=== PATIENT | female | born 1990 | race Caucasian/White ===

== ENCOUNTER 2017-03-07 13:28 | Emergency (ER) | payer OTHER ==
[2017-03-07 13:34] VITALS: BP 123/76; PULSE 67; RESP 20; TEMP 98.6
--- NOTE | 2017-03-07 13:42 | ED ---
General Adult HPI - General Chief complaint: Extremity Injury, Lower Stated complaint: Right Knee Pain Time Seen by Provider: 03/07/17 13:35 Source: patient, RN notes reviewed Mode of arrival: ambulatory Limitations: no limitations - History of Present Illness Initial comments: 27 yo female presents to the ER with cc of right knee pain. 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 Patient states that this is causing her incredible pain she has some numbness and tingling to the right side of the knee. Patient states she able to walk she is able to move it she can bend squats that if she puts direct pressure on the front of her knee she does have discomfort. Patient has a swelling. Patient denies any history of knee problems in the past. Patient states that she is not currently having any other symptoms. Patient denies any recent fever, chills, shortness of breath, chest pain, back pain, abdominal pain , nausea vomiting, numbness or tingling, dysuria or hematuria, constipation or diarrhea, headaches or visual changes, or any other current symptoms. - Related Data Home Medications Medication Instructions Recorded Confirmed No Known Home Medications [No 03/07/17 03/07/17 Known Home Medications] Allergies Allergy/AdvReac Type Severity Reaction Status Date / Time No Known Allergies Allergy Verified 03/07/17 13:34 Review of Systems ROS Statement: Those systems with pertinent positive or pertinent negative responses have been documented in the HPI. ROS Other: All systems not noted in ROS Statement are negative. Past Medical History Past Medical History: No Reported History History of Any Multi-Drug Resistant Organisms: None Reported Past Surgical History: Cholecystectomy, Orthopedic Surgery Additional Past Surgical History / Comment(s): LT WRIST BROKEN HAD SX TO REPAIR AND PT STATED "SHE THINKS. THEY REMOVED THE PINS THAT WERE IN PLACE" Past Anesthesia/Blood Transfusion Reactions: No Reported Reaction Past Psychological History: ADD/ADHD Smoking Status: Never smoker Past Alcohol Use History: Occasional Past Drug Use History: None Reported - Past Family History Mother History Unknown: Yes Father Additional Family Medical History / Comment(s): BACK PROBLEMS General Exam - General Exam Comments Initial Comments: General: The patient is awake and alert, in no distress, and does not appear acutely ill. Neck: The neck is supple, there is no tenderness. Cardiovascular: There is a regular rate and rhythm. No murmur, rub or gallop is appreciated. Respiratory: Lungs are clear to auscultation, respirations are non-labored, breath sounds are equal. No wheezes, stridor, rales, or rhonchi. Musculoskeletal: Sensation intact with 2+ pulses. Right lower extremity. Find motion of the right ankle and right knee and right hip. Patient does appear to have some tenderness along the anterior aspect of the right knee no swelling or deformity noted. 5 out of 5 muscle strength testing. Neurological: CN II-XII intact, There are no obvious motor or sensory deficits. Coordination appears grossly intact. Speech is normal. Skin: Skin is warm and dry and no rashes or lesions are noted. Psychiatric: Normal mood and affect. Limitations: no limitations Course Vital Signs 03/07/17 13:32 Temperature 98.6 F Pulse Rate 67 Respiratory 20 Rate Blood Pressure 123/76 O2 Sat by Pulse 99 Oximetry Medical Decision Making - Medical Decision Making 27-year-old female presents emergency per chief complaint of right knee pain. This time x-rays reviewed and negative. We discussed patient most has a right knee contusion. We discussed ice Motrin Tylenol. We discussed return parameters and follow-up all questions. Patient stated that she understood and she is. This plan. She will be discharged home. - Radiology Data Radiology results: report reviewed, image reviewed Disposition Clinical Impression: Contusion of right knee, Osteoarthritis Disposition: HOME SELF-CARE Condition: Stable Instructions: Knee Pain (ED) Additional Instructions: Please use medication as discussed. Please follow up with family doctor if symptoms have not improved over the next two days. Please return to the emergency room if your symptoms increase or worsen or for any other concerns. Referrals: Marcia Damian MD [STAFF PHYSICIAN] - 1-2 days Time of Disposition: 14:05
--- NOTE | 2017-03-07 13:56 | XR ---
Right knee HISTORY: Right knee pain 3 views of the right knee No comparisons There is marginal spurring in the medial compartment some mild joint space loss. Alignment and bone m ineralization are maintained. No evident effusion. IMPRESSION: Osteoarthritis.
== END 2017-03-07 14:08 | disposition home or self-care (01) ==
LOC: EC 13:28
DX: S80.01XA Contusion of right knee, initial encounter (principal); M17.11 Unilateral primary osteoarthritis, right knee; X58.XXXA Exposure to other specified factors, initial encounter; Y93.89 Activity, other specified
CPT/HCPCS: 99283

== ENCOUNTER 2017-10-20 20:08 | Emergency (ER) | payer SELFPAY ==
[2017-10-20] MEDS ORDERED: SODIUM CHLORIDE 0.9% 1,000 ML IV STA ×2 (20:58)
[2017-10-20] MEDS ORDERED: KETOROLAC 30 MG/ML 1 ML VIAL IVP STA (20:59)
--- NOTE | 2017-10-20 21:23 | ED ---
Chest Pain HPI - General Chief Complaint: Chest Pain Stated Complaint: Chest pain Time Seen by Provider: 10/20/17 20:51 Source: patient, RN notes reviewed, old records reviewed Mode of arrival: ambulatory Limitations: no limitations - History of Present Illness Initial Comments: This patient is 27-year-old presents emergency Department chief complaint of right rib pain for the past week. Patient reports that she's been having the symptoms worse with movement and range of motion. Patient states that she has had no fever or chills. Denies cough chest pain shortness of breath. She states that she's had her gallbladder removed. No nausea or vomiting.Patient denies any recent fever, chills, shortness of breath, back pain, abdominal pain , nausea vomiting, numbness or tingling, dysuria or hematuria, constipation or diarrhea, headaches or visual changes, or any other current symptoms - Related Data Previous Rx's Medication Instructions Recorded Naproxen 500 mg PO BID #20 tablet 10/20/17 traMADol HCl [Ultram] 50 mg PO Q4H PRN #20 tab 10/20/17 Allergies Allergy/AdvReac Type Severity Reaction Status Date / Time No Known Allergies Allergy Verified 10/20/17 20:21 Review of Systems ROS Statement: Those systems with pertinent positive or pertinent negative responses have been documented in the HPI. ROS Other: All systems not noted in ROS Statement are negative. EKG Findings - EKG Comments: EKG Findings:: EKG shows normal sinus rhythm, incomplete right bundle branch block. Borderline EKG. Ventricular rate of 65 bpm. IA interval 144 ms. QRS duration 96 ms. QT QTc is 4/424 ms. Past Medical History Past Medical History: No Reported History History of Any Multi-Drug Resistant Organisms: None Reported Past Surgical History: Cholecystectomy, Orthopedic Surgery Additional Past Surgical History / Comment(s): LT WRIST BROKEN HAD SX TO REPAIR AND PT STATED "SHE THINKS. THEY REMOVED THE PINS THAT WERE IN PLACE" Past Anesthesia/Blood Transfusion Reactions: No Reported Reaction Past Psychological History: ADD/ADHD Smoking Status: Never smoker Past Alcohol Use History: Occasional Past Drug Use History: None Reported - Past Family History Mother History Unknown: Yes Father Additional Family Medical History / Comment(s): BACK PROBLEMS General Exam - General Exam Comments Initial Comments: Well-appearing 27-year-old female. No distress. Limitations: no limitations General appearance: alert, in no apparent distress Head exam: Present: atraumatic, normocephalic, normal inspection Eye exam: Present: normal appearance, PERRL, EOMI. Absent: scleral icterus, conjunctival injection, periorbital swelling ENT exam: Present: normal exam, mucous membranes moist Neck exam: Present: normal inspection. Absent: tenderness, meningismus, lymphadenopathy Respiratory exam: Present: normal lung sounds bilaterally, other (Patient sent to palpation over the right ribs.). Absent: respiratory distress, wheezes, rales, rhonchi, stridor Cardiovascular Exam: Present: regular rate, normal rhythm, normal heart sounds. Absent: systolic murmur, diastolic murmur, rubs, gallop, clicks GI/Abdominal exam: Present: soft, normal bowel sounds. Absent: distended, tenderness, guarding, rebound, rigid Extremities exam: Present: normal inspection, full ROM, normal capillary refill. Absent: tenderness, pedal edema, joint swelling, calf tenderness Back exam: Present: normal inspection Neurological exam: Present: alert, oriented X3, CN II-XII intact Psychiatric exam: Present: normal affect, normal mood Skin exam: Present: warm, dry, intact, normal color. Absent: rash Course Vital Signs 10/20/17 10/20/17 20:20 21:52 Temperature 98.3 F Pulse Rate 66 69 Respiratory 22 16 Rate Blood Pressure 140/63 O2 Sat by Pulse 98 98 Oximetry Chest Pain MDM - MDM This patient is 27-year-old female since prescribed to him when one week of right-sided rib pain. Worse with movement. She is tender to palpation over the wrist. Denies any specific strenuous activity that causes. Patient's EKG was reviewed and normal. Lab work was reviewed and normal. Negative d-dimer. Negative troponin. Chest x-ray shows no acute abnormalities. Patient again is very tender to light palpation with range of motion of the muscles. We'll discharge her with anti-inflammatory medicine and advised to follow-up with PCP. QUESTIONS WERE ANSWERED AND RETURN PARAMETERS WERE DISCUSSED. Disposition Clinical Impression: Rib pain on right side Disposition: HOME SELF-CARE Condition: Good Instructions: Costochondritis (ED) Additional Instructions: Patient is to rest, ice, and apply warm compresses on the area of pain. Follow up with PCP and take pain medication. Prescriptions: Naproxen 500 mg PO BID #20 tablet traMADol HCl [Ultram] 50 mg PO Q4H PRN #20 tab PRN Reason: Pain Referrals: None,Stated [Primary Care Provider] - 1-2 days Marcia Damian MD [STAFF PHYSICIAN] - 1-2 days Time of Disposition: 22:45
--- NOTE | 2017-10-20 21:31 | XR ---
EXAMINATION TYPE: XR chest 2V DATE OF EXAM: 10/20/2017 COMPARISON: CT abdomen pelvis one day prior HISTORY: Chest pain TECHNIQUE: Frontal and lateral views of the chest are obtained. FINDINGS: There is no focal air space opacity, pleural effusion, or pneumothorax seen. The cardiac silhouette size is within normal limits. There are overlying cardiac leads. Metallic posterior prese nt to the region of the nipples bilaterally. The osseous structures are intact. IMPRESSION: No acute cardiopulmonary process.
[2017-10-20 21:40] LABS: ALT 27 U/L (9-52); AST 16 U/L (14-36); Alkaline Phosphatase 40 U/L (38-126); Anion Gap 12 mmol/L; Blood Urea Nitrogen 14 mg/dL (7-17); Calcium 9.3 mg/dL (8.4-10.2); Carbon Dioxide 26 mmol/L (22-30); Chloride 106 mmol/L (98-107); Glucose 83 mg/dL (74-99); Magnesium 1.9 mg/dL (1.6-2.3); Potassium 4.2 mmol/L (3.5-5.1); Sodium 144 mmol/L (137-145); Total Bilirubin 0.4 mg/dL (0.2-1.3); Total Protein 6.8 g/dL (6.3-8.2)
[2017-10-20 21:41] LABS: Basophils % (A) 0 %; Eosinophils # (A) 0.1 k/uL (0-0.7); Eosinophils % (A) 1 %; HCT 40.7 % (34.0-46.0); HGB 13.1 gm/dL (11.4-16.0); Lymphocytes # (A) 2.7 k/uL (1.0-4.8); Lymphocytes % (A) 22 %; MCH 29.3 pg (25.0-35.0); MCHC 32.3 g/dL (31.0-37.0); MCV 90.8 fL (80.0-100.0); Mean Platelet Volume 7.4; Monocytes # (A) 0.5 k/uL (0-1.0); Monocytes % (A) 4 %; Neutrophils # (A) 8.7 k/uL (1.3-7.7); Neutrophils % (A) 71 %; Platelet Count 387 k/uL (150-450); RBC 4.49 m/uL (3.80-5.40); RDW 12.7 % (11.5-15.5); WBC 12.2 k/uL (3.8-10.6)
[2017-10-20 21:47] LABS: D-Dimer 0.4 mg/L FEU (<0.60)
[2017-10-20 21:52] LABS: INR 1.1 (<1.2); Partial Thromboplastin Time 23.9 sec (22.0-30.0); Prothrombin Time 11.1 sec (9.0-12.0)
[2017-10-20 21:53] VITALS: RESP 16
[2017-10-20 22:01] LABS: Creatine Kinase 85 U/L (30-135)
[2017-10-20 22:13] LABS: Troponin I <0.012 ng/mL (0.000-0.034)
[2017-10-20 22:25] LABS: Creatine Kinase MB 0.8 ng/mL (0.0-2.4)
[2017-10-20 23:05] VITALS: BP 133/74; PULSE 70; TEMP 98
== END 2017-10-20 23:04 | disposition home or self-care (01) ==
LOC: EC 20:08
DX: R07.81 Pleurodynia (principal)
CPT/HCPCS: 96361 ×3; 96374 ×2; 99285 ×2; 36415; 93005; 85379; 80053; 82550; 82553; 83735; 84484; 85025; 85610; 85730; 71046; J1885

== ENCOUNTER 2017-10-24 12:09 | Emergency (ER) | payer OTHER ==
[2017-10-24 14:06] LABS: Basophils % (A) 0 %; Eosinophils # (A) 0.1 k/uL (0-0.7); Eosinophils % (A) 1 %; HCT 40.4 % (34.0-46.0); HGB 13.2 gm/dL (11.4-16.0); Lymphocytes # (A) 1.9 k/uL (1.0-4.8); Lymphocytes % (A) 18 %; MCH 29.9 pg (25.0-35.0); MCHC 32.6 g/dL (31.0-37.0); MCV 91.6 fL (80.0-100.0); Mean Platelet Volume 7.2; Monocytes # (A) 0.4 k/uL (0-1.0); Monocytes % (A) 4 %; Neutrophils # (A) 8.1 k/uL (1.3-7.7); Neutrophils % (A) 77 %; Platelet Count 396 k/uL (150-450); RBC 4.41 m/uL (3.80-5.40); RDW 12.6 % (11.5-15.5); WBC 10.5 k/uL (3.8-10.6)
[2017-10-24 14:11] LABS: ALT 25 U/L (9-52); AST 18 U/L (14-36); Albumin 4.3 g/dL (3.5-5.0); Alkaline Phosphatase 50 U/L (38-126); Anion Gap 12 mmol/L; Blood Urea Nitrogen 11 mg/dL (7-17); Calcium 9.6 mg/dL (8.4-10.2); Carbon Dioxide 26 mmol/L (22-30); Chloride 103 mmol/L (98-107); Glucose 80 mg/dL (74-99); Potassium 4.4 mmol/L (3.5-5.1); Sodium 141 mmol/L (137-145); Total Bilirubin 0.6 mg/dL (0.2-1.3); Total Protein 7.1 g/dL (6.3-8.2)
[2017-10-24 14:14] LABS: INR 1.1 (<1.2); Partial Thromboplastin Time 23.8 sec (22.0-30.0); Prothrombin Time 10.3 sec (9.0-12.0)
[2017-10-24 14:20] LABS: Creatine Kinase 121 U/L (30-135)
[2017-10-24] MEDS ORDERED: KETOROLAC 30 MG/ML 1 ML VIAL IVP STA (14:21)
--- NOTE | 2017-10-24 14:23 | ED ---
General Adult HPI - General Chief complaint: Chest Pain Stated complaint: chest pain, SOB Time Seen by Provider: 10/24/17 13:40 Source: patient, RN notes reviewed Mode of arrival: ambulatory Limitations: no limitations - History of Present Illness Initial comments: Patient 27-year-old female presents to the emergency room today with chief complaint of right-sided rib pain over the last week and a half. She does admit that she was seen here the emergency room recently for this and diagnosed with gastritis. She states she was at work earlier today she felt a popping sensation in the same area. Patient does not that she's been using ibuprofen but has not taken any today. Patient denies any other injury or trauma. Denies any other complaints or symptoms. Patient denies any recent fever, chills , shortness of breath, back pain, abdominal pain, nausea or vomiting, numbness or tingling, dysuria or hematuria, constipation or diarrhea, headaches or visual changes, or any other complaints. - Related Data Home Medications Medication Instructions Recorded Confirmed Ibuprofen [Motrin Ib] 400 mg PO Q6HR PRN 10/24/17 10/24/17 Previous Rx's Medication Instructions Recorded Benzonatate [Tessalon Perles] 100 mg PO TID PRN #20 capsule 10/24/17 predniSONE 50 mg PO DAILY #5 tab 10/24/17 Allergies Allergy/AdvReac Type Severity Reaction Status Date / Time No Known Allergies Allergy Verified 10/24/17 14:19 Review of Systems ROS Statement: Those systems with pertinent positive or pertinent negative responses have been documented in the HPI. ROS Other: All systems not noted in ROS Statement are negative. Past Medical History Past Medical History: No Reported History History of Any Multi-Drug Resistant Organisms: None Reported Past Surgical History: Cholecystectomy, Orthopedic Surgery Additional Past Surgical History / Comment(s): LT WRIST BROKEN HAD SX TO REPAIR AND PT STATED "SHE THINKS. THEY REMOVED THE PINS THAT WERE IN PLACE" Past Anesthesia/Blood Transfusion Reactions: No Reported Reaction Past Psychological History: ADD/ADHD Smoking Status: Never smoker Past Alcohol Use History: Occasional Past Drug Use History: None Reported - Past Family History Mother History Unknown: Yes Father Additional Family Medical History / Comment(s): BACK PROBLEMS General Exam - General Exam Comments Initial Comments: General: The patient is awake and alert, in no distress, and does not appear acutely ill. Eye: Pupils are equal, round and reactive to light, extra-ocular movements are intact. No nystagmus. There is normal conjunctiva bilaterally. No signs of icterus. Ears, nose, mouth and throat: There are moist mucous membranes and no oral lesions. Neck: The neck is supple, there is no tenderness or JVD. Cardiovascular: There is a regular rate and rhythm. No murmur, rub or gallop is appreciated. Respiratory: Lungs are clear to auscultation, respirations are non-labored, breath sounds are equal. No wheezes, stridor, rales, or rhonchi. Musculoskeletal: Normal ROM, no tenderness. Strength 5/5. Sensation intact. Pulses equal bilaterally 2+. Neurological: A&O x 3. CN II-XII intact, There are no obvious motor or sensory deficits. Coordination appears grossly intact. Speech is normal. Skin: Skin is warm and dry and no rashes or lesions are noted. Psychiatric: Cooperative, appropriate mood & affect, normal judgment. Limitations: no limitations Course Vital Signs 10/24/17 10/24/17 10/24/17 12:31 13:15 14:33 Temperature 99.8 F H 98.7 F Pulse Rate 80 74 Respiratory 16 18 18 Rate Blood Pressure 122/58 117/56 O2 Sat by Pulse 97 95 Oximetry EKG Findings - EKG Comments: EKG Findings:: EKG performed at 1246: Shows normal sinus rhythm at 73 bpm. GA interval 126. QRS 98. QT/QTc 404/445. No Acute ST changes. Medical Decision Making - Medical Decision Making Case discussed in detail with attending physician Dr. Moar. Patient reexamined at this time shows no signs of distress. Patient's EKG shows normal sinus rhythm. Patient's labs been reviewed are unremarkable. Recent visit to the Hospital was reviewed and negative d-dimer 4 days ago. Patient states her main reason for coming today was advised felt a pop earlier today. Patient does admit that she had a recent upper respiratory infection. This may be pleurisy. Patient will be treated with steroids. Medication and anti- inflammatories. Advised follow family doctor over the next 2 days return if any symptoms increase or worsen.. - Lab Data Result diagrams: 10/24/17 13:51 10/24/17 13:51 Lab Results 10/24/17 10/24/17 10/24/17 Range/Units 13:51 13:51 13:51 WBC 10.5 (3.8-10.6) k/uL RBC 4.41 (3.80-5.40) m/uL Hgb 13.2 (11.4-16.0) gm/dL Hct 40.4 (34.0-46.0) % MCV 91.6 (80.0-100.0) fL MCH 29.9 (25.0-35.0) pg MCHC 32.6 (31.0-37.0) g/dL RDW 12.6 (11.5-15.5) % Plt Count 396 (150-450) k/uL Neutrophils % 77 % Lymphocytes % 18 % Monocytes % 4 % Eosinophils % 1 % Basophils % 0 % Neutrophils # 8.1 H (1.3-7.7) k/uL Lymphocytes # 1.9 (1.0-4.8) k/uL Monocytes # 0.4 (0-1.0) k/uL Eosinophils # 0.1 (0-0.7) k/uL Basophils # 0.0 (0-0.2) k/uL PT (9.0-12.0) sec INR (<1.2) APTT (22.0-30.0) sec Sodium 141 (137-145) mmol/L Potassium 4.4 (3.5-5.1) mmol/L Chloride 103 (98-107) mmol/L Carbon Dioxide 26 (22-30) mmol/L Anion Gap 12 mmol/L BUN 11 (7-17) mg/dL Creatinine 0.54 (0.52-1.04) mg/dL Est GFR (CKD-EPI)AfAm >90 (>60 ml/min/1.73 sqM) Est GFR (CKD-EPI)NonAf >90 (>60 ml/min/1.73 sqM) Glucose 80 (74-99) mg/dL Calcium 9.6 (8.4-10.2) mg/dL Magnesium 2.0 (1.6-2.3) mg/dL Total Bilirubin 0.6 (0.2-1.3) mg/dL AST 18 (14-36) U/L ALT 25 (9-52) U/L Alkaline Phosphatase 50 (38-126) U/L Total Creatine Kinase 121 (30-135) U/L CK-MB (CK-2) 0.8 (0.0-2.4) ng/mL CK-MB (CK-2) Rel Index 0.7 Troponin I <0.012 (0.000-0.034) ng/mL Total Protein 7.1 (6.3-8.2) g/dL Albumin 4.3 (3.5-5.0) g/dL 10/24/17 Range/Units 13:51 WBC (3.8-10.6) k/uL RBC (3.80-5.40) m/uL Hgb (11.4-16.0) gm/dL Hct (34.0-46.0) % MCV (80.0-100.0) fL MCH (25.0-35.0) pg MCHC (31.0-37.0) g/dL RDW (11.5-15.5) % Plt Count (150-450) k/uL Neutrophils % % Lymphocytes % % Monocytes % % Eosinophils % % Basophils % % Neutrophils # (1.3-7.7) k/uL Lymphocytes # (1.0-4.8) k/uL Monocytes # (0-1.0) k/uL Eosinophils # (0-0.7) k/uL Basophils # (0-0.2) k/uL PT 10.3 (9.0-12.0) sec INR 1.1 (<1.2) APTT 23.8 (22.0-30.0) sec Sodium (137-145) mmol/L Potassium (3.5-5.1) mmol/L Chloride (98-107) mmol/L Carbon Dioxide (22-30) mmol/L Anion Gap mmol/L BUN (7-17) mg/dL Creatinine (0.52-1.04) mg/dL Est GFR (CKD-EPI)AfAm (>60 ml/min/1.73 sqM) Est GFR (CKD-EPI)NonAf (>60 ml/min/1.73 sqM) Glucose (74-99) mg/dL Calcium (8.4-10.2) mg/dL Magnesium (1.6-2.3) mg/dL Total Bilirubin (0.2-1.3) mg/dL AST (14-36) U/L ALT (9-52) U/L Alkaline Phosphatase (38-126) U/L Total Creatine Kinase (30-135) U/L CK-MB (CK-2) (0.0-2.4) ng/mL CK-MB (CK-2) Rel Index Troponin I (0.000-0.034) ng/mL Total Protein (6.3-8.2) g/dL Albumin (3.5-5.0) g/dL Disposition Clinical Impression: Pleurisy Disposition: HOME SELF-CARE Condition: Good Instructions: Pleurisy (ED) Additional Instructions: Please use medication as discussed. Please follow-up with family doctor in the next 2 days of symptoms have not improved. Please return to emergency room if the symptoms increase or worsen or for any other concerns. Prescriptions: Benzonatate [Tessalon Perles] 100 mg PO TID PRN #20 capsule PRN Reason: Cough predniSONE 50 mg PO DAILY #5 tab Referrals: None,Stated [Primary Care Provider] - 1-2 days Marcia Damian MD [STAFF PHYSICIAN] - 1-2 days Time of Disposition: 15:20
[2017-10-24 14:33] LABS: Creatine Kinase MB 0.8 ng/mL (0.0-2.4); Troponin I <0.012 ng/mL (0.000-0.034)
[2017-10-24 15:03] VITALS: BP 117/56; PULSE 74; RESP 18; TEMP 98.7
--- NOTE | 2017-10-24 15:10 | XR ---
EXAMINATION TYPE: XR chest 2V DATE OF EXAM: 10/24/2017 COMPARISON: Prior chest 10/20/2017 HISTORY: Cough and history of right-sided chest pain TECHNIQUE: Frontal and lateral views of the chest are obtained. FINDINGS: There is no focal air space opacity, pleural effusion, or pneumothorax seen. The cardiac silhouette size is within normal limits. The osseous structures are intact. The exam is stable. Met allic posts present within the nipples. IMPRESSION: No acute cardiopulmonary process.
== END 2017-10-24 15:55 | disposition home or self-care (01) ==
LOC: EC 12:09
DX: R09.1 Pleurisy (principal); Z87.09 Personal history of other diseases of the respiratory system
CPT/HCPCS: 36415; 71046; 80053; 82550; 82553; 83735; 84484; 85025; 85610; 85730; 93005; 96374; 99285

== ENCOUNTER → 2018-05-14 | Outpatient (CLI) | payer OTHER ==
[2018-05-14 12:56] VITALS: BP 119/55; PULSE 64; TEMP 97.5; BMI 33.4
--- NOTE | 2018-05-14 13:49 | P.HPOB ---
History of Present Illness H&P Date: 05/14/18 Chief Complaint: The patient is here for her routine gynecologic exam and breast check. This is a 28-year-old G2 PII within LMP of 05/10/2018. She has used condoms for control. It is been about 7 years since her last pelvic exam. She states she felt a lump about 1 month ago in the left breast. It is near the left nipple and is felt to be about the size of a nickel. She denies any breast pain or nipple discharge. She has never had a mammogram before. She does not have a family history of breast cancer. Review of Systems The patient's weight has been stable over the last year. She denies respiratory , cardiac, or G.I. problems. 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 History of Any Multi-Drug Resistant Organisms: None Reported Past Surgical History: Cholecystectomy, Orthopedic Surgery (Left wrist surgery.) Additional Past Surgical History / Comment(s): LT WRIST BROKEN HAD SX TO REPAIR AND PT STATED "SHE THINKS. THEY REMOVED THE PINS THAT WERE IN PLACE" Past Anesthesia/Blood Transfusion Reactions: No Reported Reaction Past Psychological History: No Psychological Hx Reported Smoking Status: Never smoker Past Alcohol Use History: Rare (15 per year) Past Drug Use History: None Reported Additional History: She is single and is not seen anybody at this time. She works at [employer]. - Past Family History Mother History Unknown: Yes Family Medical History: Unable to Obtain Father Family Medical History: No Reported History Additional Family Medical History / Comment(s): BACK PROBLEMS. Grandparents had skin cancer. Medications and Allergies Home Medications Medication Instructions Recorded Confirmed Type No Known Home Medications 05/14/18 05/14/18 History Allergies Allergy/AdvReac Type Severity Reaction Status Date / Time No Known Allergies Allergy Verified 05/14/18 12:53 Exam Vital Signs Temp Pulse BP 05/14/18 12:54 97.5 F L 64 119/55 Intake and Output 05/13/18 05/14/18 05/14/18 22:59 06:59 14:59 Other: Weight 99.79 kg Height 5'8", weight 220 pounds, BMI 33.5. This is a well-developed well-nourished heavyset white female who is alert and oriented times 3 in no acute distress. HEENT: Within normal limits. NECK: Supple without mass or thyromegaly. CHEST AND LUNGS: Clear to auscultation. HEART: Regular rate and rhythm. BREASTS: there is a palpable mass in the left breast at the periphery of the areola at the 8 o'clock position. This mass measures approximately 1 cm is somewhat firm and slightly mobile. A marker was placed at the site of the palpable mass. It is nontender. There is no puckering. There is no nipple discharge. There are no other palpable breast masses, however, the breast tissue is generally dense and with mixed nodularity. There is no nipple discharge. AXILLARY EXAM: Negative for adenopathy. BACK: Negative for CVA tenderness. ABDOMEN: Soft, nontender, without palpable masses. PELVIC EXAM: Normal external genitalia. Cervix and vagina appear normal with a small amount of menstrual type of blood. There is no unusual discharge. There is no evidence of prolapse. The uterus is midposition, nongravid size and nontender. There are no palpable adnexal masses or tenderness. RECTAL EXAM: negative for mass or tenderness and is negative for occult blood. EXTREMITIES: Nontender. IMPRESSION: 1. 28-year-old female with left breast lump measuring 1cm at the 8 o'clock position near the periphery of the areola. 2. The patient has been using condoms for control. PLAN: 1. Pap smear was performed. 2. Self breast awareness was discussed with the patient. 3. Baseline diagnostic bilateral mammogram and left breast ultrasound will be done today. Consider referral to general surgeon if any suspicion with breast imaging. 4. STD prevention was discussed. I've stressed the importance of limiting sexual partners and using condoms. The patient is declining any STD testing at this time. 5. She will return in one year and PRN
--- NOTE | 2018-05-15 09:11 | MM ---
Reason for exam: clinical finding. Baseline mammogram. Physical Findings: Nurse Summary: 1.0cm nodule in the left breast at 8 o'clock (Dr. Vazquez). MG 3D Diag Mammo W/Cad IRVING Bilateral CC and MLO view(s) were taken. There are scattered fibroglandular densities. There is a mass near or in the skin in the lower inner quadrant of the left breast at the site of palpable abnormality. Ultrasound will be done. No suspicious abnormality in the right breast. These results were verbally communicated with the patient and result sheet given to the patient on 05/14/18. ASSESSMENT: Incomplete: need additional imaging evaluation, BI-RAD 0 RECOMMENDATION: Ultrasound of the left breast. (at palpable)
--- NOTE | 2018-05-15 09:13 | USB ---
Reason for exam: additional evaluation requested from abnormal screening. US Breast Limited LT Left limited breast ultrasound including focal area of concern, retroareolar and axilla demonstrates a 1.0 x 0.3 x 0.7cm possibly cystic lesion although palpable at 9 o'clock and biopsy is recommended. These results were verbally communicated with the patient and result sheet given to the patient on 05/14/18. ASSESSMENT: Suspicious, BI-RAD 4 RECOMMENDATION: Ultrasound core biopsy of the left breast. Called Dr. Vazquez with mammographic findings and has scheduled an appointment for the patient for 05/24/16 at 2:[address] Womack. Biopsy scheduled for 05/27/18 at 8:00. PRELIMINARY REPORT CALLED AND FAXED TO DR. WOMACK ON 05/15/18.
== END | disposition home or self-care (01) ==
LOC: WWCWWP 12:33
PROVIDERS: ATTEND Obstetrics & Gynecology
DX: R92.8 Other abnormal and inconclusive findings on diagnostic imaging of breast (principal); N63.0 Unspecified lump in unspecified breast
CPT/HCPCS: 77066; 76642; G0279; 77062

== ENCOUNTER → 2018-05-24 | Outpatient (CLI) | payer OTHER ==
[2018-05-24 15:09] VITALS: BP 141/60; PULSE 83; RESP 18; TEMP 97.2; BMI 32.2
== END | disposition home or self-care (01) ==
LOC: WWCWWP 15:01
PROVIDERS: ATTEND Surgery
DX: Z53.9 Procedure and treatment not carried out, unspecified reason (principal)

== ENCOUNTER → 2018-05-24 | Outpatient (CLI) | payer OTHER ==
--- NOTE | 2018-05-24 14:49 | P.PN ---
Progress Note - Text Progress Note Date: 05/24/18 The patient's pap from 05/14/18 was unsatisfactory. I am seeing patient today for a re-pap. O: Cx is multiparous and normal appearing. There is no unusual discharge. A: Unsatisfactory pap P: pap was done. She will be seeing Dr. Womack for the breast lump and biopsy.
--- NOTE | 2018-06-11 10:16 | P.PN ---
Progress Note - Text Progress Note Date: 06/11/18 OUTPATIENT FOLLOW-UP NOTE TEST(S)/RESULTS: re-pap from 05/24/2018 showed atypical squamous cells-cannot rule out high-grade changes. HR HRP was positive(Neg for HPV16 and 18). There was also a shift in the bacteria with possible bacterial vaginosis. METHOD OF NOTIFICATION: the patient was notified by phone on 06/05/2018. At that time I did not discuss the shift in bacterial with possible bacterial vaginosis. PATIENT COMMENTS: I have called the patient back to talk to her about the shift in the vaginal maggi. She denies any bacterial vaginosis symptoms such as discharge or odor. DIAGNOSIS: abnormal Pap smear and possible bacterial vaginosis. DISCUSSION: the patient has been referred for a colposcopy and this is scheduled on 06/28/[address] Layne. HRHPV was positive . This will be forwarded to Dr. Layne. Because of the upcoming procedure and possible biopsies , she will be treated for possible bacterial vaginosis. PLAN: metronidazole 500 mg PO BID times 7 days. The electronic prescription will be sent to the [facility] in [place]. Colposcopic examination as referred to in the discussion.
== END | disposition home or self-care (01) ==
LOC: WWCWWP 14:20
PROVIDERS: ATTEND Obstetrics & Gynecology
DX: Z53.9 Procedure and treatment not carried out, unspecified reason (principal)

== ENCOUNTER → 2018-05-27 | Day surgery (SDC) | payer OTHER ==
--- NOTE | 2018-05-24 15:40 | P.GSHP ---
History of Present Illness H&P Date: 05/24/18 Chief Complaint: Nodule noted in the left breast approximately a month ago The patient is a 28-year-old white female who presents with a complaint of the area of nodularity in the left breast. Area is in the lower inner aspect of the breast. She had a bilateral mammogram performed [id number] which revealed a mass near her at the skin in the lower inner quadrant of the left breast. She subsequently had an ultrasound performed the same day which revealed a 1 x 0.7 cm possible cystic lesion at 9:00 and biopsy was recommended. Ultrasound core biopsy of the left breast was suggested. The patient is a this is increased in size slightly. She does not give any report of trauma to the breast. She does not give any report of infection to the breast. No abnormal nipple discharge or changes. The patient drinks one cup of coffee/day. She does not smoke not exposed to secondhand smoke. He eats chocolate rarely. Family History: 1. paternal grandfather and grandmother: skin cancer uncertain of the type Hormonal History: menarche: 8 : 2, 2 children, breast fed: no, age at first : 18 periods regular: LMP BCP: no hormones: none Past Surgical Hsitory: 1. wrist 2. gallbladder Past Medical History: none Social History: smoke: none alcohol: none drugs: none - Constitutional Constitutional: Denies chills, Denies fever - EENT Eyes: denies blurred vision, denies pain Ears: deny: decreased hearing, tinnitus Ears, nose, mouth and throat: Reports headache - Breasts Breasts: bilateral: as per HPI - Cardiovascular Cardiovascular: Denies chest pain, Denies shortness of breath - Respiratory Respiratory: Denies cough, Denies 7 - Gastrointestinal Gastrointestinal: Denies abdominal pain, Denies diarrhea, Denies nausea, Denies vomiting - Genitourinary (Female) Genitourinary: Denies dysuria, Denies hematuria - Menstruation Menstruation: Reports period normal - Musculoskeletal Comment: arthritis in left knee Musculoskeletal: Denies myalgias - Integumentary Integumentary: Denies pruritus, Denies rash - Neurological Neurological: Denies numbness, Denies weakness - Psychiatric Psychiatric: Denies anxiety, Denies depression - Endocrine Endocrine: Denies fatigue, Denies weight change - Hematologic/Lymphatic Comment: none - Allergic/Immunologic Comment: none Past Medical History Past Medical History: No Reported History 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 History of Any Multi-Drug Resistant Organisms: None Reported Past Surgical History: Cholecystectomy, Orthopedic Surgery Additional Past Surgical History / Comment(s): LT WRIST BROKEN HAD SX TO REPAIR AND PT STATED "SHE THINKS. THEY REMOVED THE PINS THAT WERE IN PLACE" Past Anesthesia/Blood Transfusion Reactions: No Reported Reaction Past Psychological History: No Psychological Hx Reported Smoking Status: Never smoker Past Alcohol Use History: Rare Past Drug Use History: None Reported - Past Family History Mother History Unknown: Yes Family Medical History: Unable to Obtain Father Family Medical History: No Reported History Additional Family Medical History / Comment(s): BACK PROBLEMS. Grandparents had skin cancer. Medications and Allergies Home Medications Medication Instructions Recorded Confirmed Type No Known Home Medications 05/14/18 05/24/18 History Allergies Allergy/AdvReac Type Severity Reaction Status Date / Time No Known Allergies Allergy Verified 05/24/18 15:10 Surgical - Exam BP: 141/60 HR: 83 R: 18 T: 97.2 - General well developed, well nourished, no distress - Eyes normal ocular movement, no icteric - ENT no hearing loss, no congestion - Neck no masses, trachea midline - Respiratory normal respiratory effort, clear to auscultation - Cardiovascular Rhythm: regular Heart Sounds: normal: S1, S2 - Abdomen Abdomen: soft, non tender, no guarding, no rigid, no rebound - Integumentary no rash, no abnormal pigmentation - Neurologic no disoriented, no combative - Musculoskeletal normal gait, normal posture - Psychiatric oriented to time, oriented to person, oriented to place, speech is normal, memory intact Breast examination: Right breast: Multi-positional exam no dominant masses or nodules of concern Right axilla: No adenopathy of concern Left breast: Multiple positional exam some slight increased nodularity at the 7 to 8 o'clock position in the right periareolar area this appears to be cystic in nature and is under the Luis Angel extending up to the nipple Left axilla: No adenopathy of concern Results A gram and ultrasound reports reviewed Assessment and Plan Assessment: IMPRESSION: 1. Palpable abnormality left periareolar area consistent with that seen on ultrasound Plan: 1. Ultrasound-guided core biopsy left breast 2. Follow-up after ultrasound guided core biopsy Risk and benefits of the procedure been discussed with the patient including bleeding infection reaction to the anesthetic. The possibility of discordance with the biopsy with the ultrasound finding has also been discussed with the patient. Patient understands and wishes to proceed. Cc: Dr. Vazquez
--- NOTE | 2018-05-27 08:44 | USB ---
EXAMINATION TYPE: US biopsy breast VAD LT, MG diagnostic mammo LT wo CAD DATE OF EXAM: 05/27/2018 CLINICAL HISTORY: 05/27 BX RESULTS. TECHNIQUE: Ultrasound guided core biopsy of left 9:00 breast. COMPARISON: NONE FINDINGS: The procedure of ultrasound guided core biopsy was explained to the patient. Benefits, alternatives, and risks were discussed. An informed consent was then obtained. The patient was placed in supine positioning for imaging and for the procedure. The overlying skin was prepped and draped in usual sterile fashion. Lidocaine buffered with bicarbonate was used as anesthetic into the skin and subcutaneous tissue up to area of concern in the left 9:00 breast. A ren was made with surgical scalpel. Under ultrasound guidance, a 12-gauge vacuum assisted biopsy gun device was used to obtain 4 core samples. Microclip marker was placed at site of biopsy. Post procedural mammogram demonstrates appropriate deployment of clip marker. The patient tolerated the procedure well without any immediate complication. The patient was kept in the radiology department for short stay after the procedure and then discharged home in stable condition. IMPRESSION: Successful, uncomplicated ultrasound guided core biopsy of area of concern in the left 9:00 breast, full pathology results to follow. Pathology Results: Benign LEFT BREAST, BIOPSY: Benign breast parenchyma with abscess wall and foreign body giant cells consistent with reaction to ruptured cyst or ruptured duct. Focal apocrine ductal metaplasia. Negative for malignancy. Recommendation Follow up ultrasound of the left breast in 6 months. MTDD
[2018-05-27 13:21] VITALS: RESP 16; TEMP 97.6
[2018-05-27 13:25] VITALS: BP 102/70; PULSE 76; BMI 33.4
== END ==
LOC: RADUSWWP 05-24 14:20
PROVIDERS: ATTEND Surgery
DX: N60.82 Other benign mammary dysplasias of left breast (principal); N61.1 Abscess of the breast and nipple; Z90.49 Acquired absence of other specified parts of digestive tract
CPT/HCPCS: 88305; 77065; 19083; A4648; J2001

== ENCOUNTER → 2018-06-06 | Outpatient (CLI) | payer OTHER ==
[2018-05-27 07:33] VITALS: RESP 16; BMI 32.2
[2018-06-06 08:28] VITALS: BP 110/73; PULSE 68; TEMP 97.7
--- NOTE | 2018-06-06 09:14 | P.PN ---
Subjective Progress Note Date: 06/06/18 Principal diagnosis: Patient status post ultrasound core biopsy of the left breast The patient is a 28-year-old white female who underwent an ultrasound-guided core biopsy of an area of palpable abnormality in the left breast in the lower inner area near the area old. This area after biopsy seems to have dissipated. She does have some mild ecchymosis at this site. Otherwise no complaints. Pathology revealed breast parenchyma with abscess wall informed body giant cells consistent with reaction to ruptured cyst a ruptured duct. The patient does have bilateral nipple piercings and has barbells in place on today's examination. Objective - Vital Signs Vital signs: Vital Signs Temp 97.7 F 06/06/18 08:19 Pulse 68 06/06/18 08:19 Resp 16 05/27/18 08:36 BP 110/73 06/06/18 08:19 Pulse Ox Intake & Output 06/05/18 06/06/18 06/06/18 18:59 06:59 18:59 Weight 96.162 kg - Constitutional General appearance: Present: average body habitus - EENT Eyes: Present: EOMI ENT: Present: hearing grossly normal - Neck Neck: Present: normal ROM - Respiratory Respiratory: bilateral: CTA - Cardiovascular Rhythm: regular Heart sounds: normal: S1, S2 - Integumentary Integumentary Comment(s): Mild ecchymosis in the medial aspect in the periareolar region related to ultrasound core biopsy. No evidence of any infection. No evidence of any infection at the puncture site where the biopsy was performed. The patient does have bilateral nipple piercings. On examination there is no discrete nodularity appreciated today in the left breast. Assessment and Plan Assessment: Impression: 1. Ultrasound core biopsy of lesion in the left breast/consistent with abscess wall and foreign body giant cells consistent with reaction to ruptured cyst or ruptured duct 2. No obvious infection at this time 3. Patient with bilateral nipple piercings Plan: 1. Repeat left breast ultrasound in 6 months time with physician exam at that time I discussed with the patient and her friend the results of the pathology that this may be related to the left nipple piercing and if there is no evidence of any malignancy at this time. The patient understands that this recurs that she should call us immediately. Otherwise we will see her again in 6 months with repeat left breast ultrasound. At this time we will forego the mammogram secondary to radiation exposure is believed that the area of concern Be seen on the ultrasound. Again if anything changes with respect to this we will readdress this in the future. Cc:
== END ==
LOC: WWCWWP 05-27 07:11
PROVIDERS: ATTEND Surgery
DX: N64.89 Other specified disorders of breast (principal); R58 Hemorrhage, not elsewhere classified
CPT/HCPCS: 77065

== ENCOUNTER 2019-06-10 09:30 | Emergency (ER) | payer OTHER ==
[2019-06-10 09:41] VITALS: RESP 18
--- NOTE | 2019-06-10 10:33 | US ---
EXAMINATION TYPE: US venous doppler duplex LE RT DATE OF EXAM: 06/10/2019 10:02 AM COMPARISON: NONE CLINICAL HISTORY: Right lower extremity pain. SIDE PERFORMED: Right TECHNIQUE: The lower extremity deep venous system is examined utilizing real time linear array sonog heavenly with graded compression, doppler sonography and color-flow sonography. VESSELS IMAGED: External Iliac Vein (EIV) Common Femoral Vein Deep Femoral Vein Greater Saphenous Vein * Femoral Vein Popliteal Vein Small Saphenous Vein * Proximal Calf Veins (* superficial vessels) Grayscale, color doppler, spectral doppler imaging performed of the deep veins of the right lower ex tremity. There is normal flow, compressibility, vascular waveforms. Right Leg: Negative for DVT IMPRESSION: No sonographic evidence of deep venous thrombosis within the right lower extremity.
--- NOTE | 2019-06-10 10:55 | ED ---
Lower Extremity Injury HPI - General Chief Complaint: Extremity Injury, Lower Stated Complaint: Rt leg pain Time Seen by Provider: 06/10/19 09:56 Source: patient, RN notes reviewed Mode of arrival: ambulatory Limitations: no limitations - History of Present Illness Initial Comments: 29-year-old female presents emergency Department with right leg pain. Patient states she's had some pain and numbness feeling. She states been going on for a while and she states that she was talking to some friends and googled some information and she is concerned about possible blood clot. She has no risk factors including hormone replacement, recent traveling no history of clotting disorders no history of DVT. Patient states that her leg does not swell vision no redness. She states that she is painful in her right thigh and states it feels more numb. She denies any bowel bladder incontinence or retention. Denies any lumbar back pain. - Related Data Home Medications Medication Instructions Recorded Confirmed No Known Home Medications 05/14/18 06/06/18 Allergies Allergy/AdvReac Type Severity Reaction Status Date / Time No Known Allergies Allergy Verified 06/10/19 09:37 Review of Systems ROS Statement: Those systems with pertinent positive or pertinent negative responses have been documented in the HPI. ROS Other: All systems not noted in ROS Statement are negative. 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 History of Any Multi-Drug Resistant Organisms: None Reported Past Surgical History: Cholecystectomy, Orthopedic Surgery Additional Past Surgical History / Comment(s): LT WRIST BROKEN HAD SX TO REPAIR AND PT STATED "SHE THINKS. THEY REMOVED THE PINS THAT WERE IN PLACE" Past Anesthesia/Blood Transfusion Reactions: No Reported Reaction Past Psychological History: No Psychological Hx Reported Smoking Status: Never smoker Past Alcohol Use History: Rare Past Drug Use History: Marijuana - Past Family History Mother History Unknown: Yes Family Medical History: Unable to Obtain Father Family Medical History: No Reported History Additional Family Medical History / Comment(s): BACK PROBLEMS. Grandparents had skin cancer. General Exam Limitations: no limitations General appearance: alert, in no apparent distress Head exam: Present: atraumatic, normocephalic, normal inspection Neck exam: Present: normal inspection, full ROM. Absent: tenderness, meningismus, lymphadenopathy Respiratory exam: Present: normal lung sounds bilaterally. Absent: respiratory distress, wheezes, rales, rhonchi, stridor Cardiovascular Exam: Present: regular rate, normal rhythm, normal heart sounds. Absent: systolic murmur, diastolic murmur, rubs, gallop, clicks Extremities exam: Present: other (Right leg neurovascular intact there is no swelling, erythema no tenderness) Skin exam: Present: warm, dry, intact, normal color. Absent: rash Course Vital Signs 06/10/19 09:38 Temperature 98.1 F Pulse Rate 71 Respiratory 18 Rate Blood Pressure 116/67 O2 Sat by Pulse 99 Oximetry Medical Decision Making - Medical Decision Making ultrasound was negative for acute DVT. Patient symptoms are consistent with lumbar radiculopathy. Patient will follow-up with Dr. Downey for MRI and return parameters were discussed. She has no red flag symptoms. Disposition Clinical Impression: Lumbar radiculopathy, Right leg paresthesias Disposition: HOME SELF-CARE Condition: Stable Instructions (If sedation given, give patient instructions): Lumbar Radiculop athy (ED) Additional Instructions: Please return to the Emergency Department if symptoms worsen or any other concerns. Is patient prescribed a controlled substance at d/c from ED?: No Referrals: None,Stated [Primary Care Provider] - 1-2 days Pranay Wells DO [Doctor of Osteopathic Medicine] - 1-2 days Time of Disposition: 10:55
[2019-06-10 11:12] VITALS: BP 114/81; PULSE 65; TEMP 97.7
== END 2019-06-10 11:09 | disposition home or self-care (01) ==
LOC: EC 09:30
DX: M54.16 Radiculopathy, lumbar region (principal); R20.2 Paresthesia of skin
CPT/HCPCS: 99283

== ENCOUNTER → 2020-04-09 | Outpatient (CLI) | payer OTHER ==
[2020-04-09 10:17] VITALS: BP 113/77; PULSE 63; RESP 16; TEMP 98.1
--- NOTE | 2020-04-09 10:27 | P.PN ---
Subjective Progress Note Date: 04/09/20 Principal diagnosis: drainage from left breast The patient is a 30-year-old white female who presented in fall of 2017 with a complaint of the area of nodularity in the left breast. Area was in the lower inner aspect of the breast. She had a bilateral mammogram performed which revealed a mass near the skin in the lower inner quadrant of the left breast. She subsequently had an ultrasound performed the same day which revealed a 1 x 0.7 cm possible cystic lesion at 9:00 and biopsy was recommended. Ultrasound core biopsy of the left breast was done. Core biopsy was done on 1019. This revealed benign breast parenchyma with abscess wall informed body giant cells consistent with reaction to a ruptured cyst or ruptured duct. Focal apocrine ductal metaplasia was noted negative for malignancy. The patient has had bilateral nipple piercings done approximately 4 years ago. The patient states approximately 6 months ago she began having purulent drainage from the nipple piercing site in the left breast. She states she has also got some purulent drainage from the core biopsy site. She has not worn the piercings since 2018. She has no problems with the right breast. She does not have any fever or chills. She does complain of some nodularity under the nipple on the left. She states that it is tender at times. She states it gets worse right before her period. The patient drinks 1-2 cups of coffee/day. She does not smoke not exposed to secondhand smoke. He eats chocolate rarely. hormones: none Family History: 1. paternal grandfather and grandmother: skin cancer uncertain of the type Hormonal History: menarche: 8 : 2, 2 children, breast fed: no, age at first : 18 periods regular: LMP March 06, 2020 BCP: no hormones: none Past Surgical Hsitory: 1. wrist 2. gallbladder Past Medical History: none Social History: smoke: none alcohol: none drugs: none; marijuana occasionally - Constitutional Constitutional: Denies chills, Denies fever - EENT Eyes: denies blurred vision, denies pain Ears: deny: decreased hearing, tinnitus Ears, nose, mouth and throat: Reports headache - Breasts Breasts: bilateral: as per HPI - Cardiovascular Cardiovascular: Denies chest pain, Denies shortness of breath - Respiratory Respiratory: Denies cough - Gastrointestinal Gastrointestinal: Denies abdominal pain, Denies diarrhea, Denies nausea, Denies vomiting - Genitourinary (Female) Genitourinary: Denies dysuria, Denies hematuria - Menstruation Menstruation: Reports period normal - Musculoskeletal Comment: arthritis in left knee Musculoskeletal: Denies myalgias - Integumentary Integumentary: Denies pruritus, Denies rash - Neurological Neurological: Denies numbness, Denies weakness - Psychiatric Psychiatric: Denies anxiety, Denies depression - Endocrine Endocrine: Denies fatigue, Denies weight change - Hematologic/Lymphatic Comment: none Objective - Exam BMI 33.5 - Constitutional General appearance: Present: obese - EENT Eyes: Present: EOMI ENT: Present: hearing grossly normal - Neck Neck: Present: normal ROM - Respiratory Respiratory: bilateral: CTA - Cardiovascular Rhythm: regular Heart sounds: normal: S1, S2 - Gastrointestinal General gastrointestinal: Present: normal bowel sounds, soft - Integumentary Integumentary Comment(s): small opening at core biopsy site with small amount of drainage Integumentary: Present: normal turgor - Musculoskeletal Musculoskeletal: Present: gait normal - Psychiatric Psychiatric: Present: A&O x's 3, appropriate affect, intact judgment & insight - Additional findings Additional findings: Breast exam: BRA 40C inspection: Bilateral ptosis grade 3, left nipple is more engorged in the right nipple Palpation: Right breast, multiple positional exam no dominant masses or nodules of concern fibrocystic changes Right axilla: No adenopathy of concern Left breast: Multiple positional exam increased nodularity behind the nipple areolar complex with extension up to the small incision where she had a prior core biopsy done with palpation there is purulent drainage from the nipple otherwise no dominant masses or nodules of concern Left axilla: No adenopathy of concern Assessment and Plan Assessment: Impression: 1. Bilateral fibrocystic breast changes 2. Patient status post nipple piercing approximately 4 years ago patient had been removed 3. fullness behind left nipple areolar complex with purulent drainage from left nipple the chronic Plan: 1. Cultures of the area of concern in the left nipple area 2. Bilateral mammogram and left breast ultrasound 3. Probable incision and drainage in the operating room 4. Follow-up after cultures and bilateral mammogram The area of drainage from the left nipple site was expressed, and cultures were obtained for aerobic and anaerobic. These will be sent for microbiology. encounter 30 minutes, > 50 % of time in planning and counselling
== END | disposition home or self-care (01) ==
LOC: WWCWWP 09:50
PROVIDERS: ATTEND Surgery
DX: N64.52 Nipple discharge (principal)
CPT/HCPCS: 87070; 87075; 87205

== ENCOUNTER → 2020-04-12 | Outpatient (CLI) | payer OTHER ==
--- NOTE | 2020-04-13 13:37 | MM ---
Reason for exam: additional evaluation requested from prior study. Last mammogram was performed 1 year and 11 months ago. History: Benign US biopsy breast VAD LT of the left breast, May 27, 2018. Physical Findings: Nurse did not find any significant physical abnormalities on exam. MG Diagnostic Mammo w CAD [place] Bilateral CC and MLO view(s) were taken. Prior study comparison: May 27, 2018, left breast MG diagnostic mammo LT wo CAD. May 14, 2018, bilateral MG 3d diag mammo w/cad [place]. There are scattered fibroglandular densities. Previous mammotome biopsy in the left breast at BB at [facility]. There is no new dominant lesion. These results were verbally communicated with the patient and result sheet given to the patient on 04/12/20. ASSESSMENT: Incomplete: need additional imaging evaluation, BI-RAD 0 RECOMMENDATION: Ultrasound of the left breast.
--- NOTE | 2020-04-13 13:37 | USB ---
Reason for exam: additional evaluation requested from abnormal screening. History: Benign US biopsy breast VAD LT of the left breast, May 27, 2018. US Breast Limited LT Technologist: Sara Burgess Left limited breast ultrasound including focal area of concern, retroareolar and axilla demonstrates no cystic or solid lesion seen. These results were verbally communicated with the patient and result sheet given to the patient on 04/12/20. ASSESSMENT: Negative, BI-RAD 1 RECOMMENDATION: Routine screening mammogram of both breasts in 1 year. Manage patient on a clinical basis.
== END | disposition home or self-care (01) ==
LOC: RADMAMWWP 12:45
PROVIDERS: ATTEND Surgery
DX: N63.20 Unspecified lump in the left breast, unspecified quadrant (principal); N64.52 Nipple discharge
CPT/HCPCS: 77066

== ENCOUNTER → 2020-04-30 | Outpatient (CLI) | payer OTHER ==
[2020-04-30 16:56] VITALS: BP 116/73; PULSE 59; RESP 16; TEMP 98.7
--- NOTE | 2020-04-30 17:13 | P.PN ---
Progress Note - Text Progress Note Date: 04/30/20 [place] [id number]. She at that time was having drainage from her left breast, this had been going on for months. This has remained persistent. On her last visit she was felt at that time to have fullness behind the left nipple areolar complex with some purulent drainage which was chronic in nature. [place] [id number] and she underwent an ultrasound of the left breast. These findings were felt to be negative BIRADS 1 and routine screening of both breasts in 1 year was recommended. Her cultures revealed anaerobic gram-positive cocci and proprionibacterium acnes. This had no fever or chills. It is felt that she has a chronic draining abscess cavity behind the nipple and that this should be opened for complete drainage. We have discussed Ab but at this time it is felt that the cavity needs to be opened more fullly. She understands the risks and benefits and wishes to proceed Physical exam: At the 12 o'clock position there is an opening which is erythematous in nature with drainage. Posterior to this there is a fullness approximately a centimeter by a centimeter. It is felt that this area needs to be opened/excised. She understands that she will have an open area following the I&D this will be packed and we will have this heal from the inside out. Since she may have some nipple inversion or decreased sensation to the nipple areolar complex. She wishes to proceed with the operative procedure. Impression: 1. Inadequately drained abscess left breast Plan: 1. I&D/excision area of abscess cavity left breast
--- NOTE | 2020-06-03 10:44 | P.PN ---
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 Area was in the lower inner aspect of the breast. She had a bilateral mammogram performed [id number] which revealed a mass near the skin in the lower inner quadrant of the left breast. She subsequently had an ultrasound performed the same day which revealed a 1 x 0.7 cm possible cystic lesion at 9:00 and biopsy was recommended. Ultrasound core biopsy of the left breast was done. Core biopsy was done on [id number]. This revealed benign breast parenchyma with abscess wall informed body giant cells consistent with reaction to a ruptured cyst or ruptured duct. Focal apocrine ductal metaplasia was noted negative for malignancy. The patient has had bilateral nipple piercings done approximately 4 years ago. The patient states approximately 6 months ago she began having purulent drainage from the nipple piercing site in the left breast. She states she has also got some purulent drainage from the core biopsy site. She has not worn the piercings since 2018. She has no problems with the right breast. She does not have any fever or chills. She does complain of some nodularity under the nipple on the left. She states that it is tender at times. She states it gets worse right before her period. She had a bilateral mammogram performed on and an ultrasound of the left breast. These findings were felt to be negative BIRADS 1 and routine screening of both breasts in 1 year was recommended. She had cultures performed which revealed anaerobic gram-positive cocci and properitoneal bacterium acnes. She had no fever or chills. It is felt she has a chronic draining abscess cavity behind the nipple and this should be open for complete drainage. We discussed antibiotic treatment was felt that the cavity needed to be opened. The patient drinks 1-2 cups of coffee/day. She does not smoke not exposed to secondhand smoke. Shee eats chocolate rarely. hormones: none Family History: 1. paternal grandfather and grandmother: skin cancer uncertain of the type Hormonal History: menarche: 8 : 2, 2 children, breast fed: no, age at first : 18 periods regular: LMP March 06, 2020 BCP: no hormones: none Past Surgical Hsitory: 1. wrist 2. gallbladder Past Medical History: none Social History: smoke: none alcohol: none drugs: none; marijuana occasionally - Constitutional Constitutional: Denies chills, Denies fever - EENT Eyes: denies blurred vision, denies pain Ears: deny: decreased hearing, tinnitus Ears, nose, mouth and throat: Reports headache - Breasts Breasts: bilateral: as per HPI - Cardiovascular Cardiovascular: Denies chest pain, Denies shortness of breath - Respiratory Respiratory: Denies cough - Gastrointestinal Gastrointestinal: Denies abdominal pain, Denies diarrhea, Denies nausea, Denies vomiting - Genitourinary (Female) Genitourinary: Denies dysuria, Denies hematuria - Menstruation Menstruation: Reports period normal - Musculoskeletal Comment: arthritis in left knee Musculoskeletal: Denies myalgias - Integumentary Integumentary: Denies pruritus, Denies rash - Neurological Neurological: Denies numbness, Denies weakness - Psychiatric Psychiatric: Denies anxiety, Denies depression - Endocrine Endocrine: Denies fatigue, Denies weight change - Hematologic/Lymphatic Comment: none Objective - Vital Signs Vital signs: Vital Signs Temp 98.7 F 04/30/20 16:52 Pulse 59 L 04/30/20 16:52 Resp 16 04/30/20 16:52 BP 116/73 04/30/20 16:52 Pulse Ox 96 04/30/20 16:52 - Exam BMI 33.5 - Constitutional General appearance: Present: average body habitus - EENT Eyes: Present: EOMI ENT: Present: hearing grossly normal - Neck Neck: Present: normal ROM - Respiratory Respiratory: bilateral: CTA - Cardiovascular Rhythm: regular Heart sounds: normal: S1, S2 - Gastrointestinal General gastrointestinal: Present: soft - Integumentary Integumentary Comment(s): normal turgor - Musculoskeletal Musculoskeletal: Present: gait normal - Psychiatric Psychiatric: Present: A&O x's 3, appropriate affect, intact judgment & insight - Additional findings Additional findings: Breast exam: Block: 40 mL Inspection: Bilateral ptosis: Grade 3, left nipple is more engorged on the right Palpation: Right breast: Multiple positional exam no dominant masses or nodules of concern, fibrocystic changes Right axilla: No adenopathy of concern Left breast: Multiple positional exam increased nodularity behind the nipple areolar complex with extension up to the small incision where she had a prior core biopsy done with the patient is purulent drainage from the nipple, otherwise no dominant masses or nodules of concern Left axilla: No adenopathy of concern Assessment and Plan Assessment: Impression: 1. Bilateral fibrocystic breast changes 2. Patient status post nipple. Piercing approximately 4 years ago patient has removed the piercings 3. Chronic abscess behind the left nipple areolar complex 4. Recent bilateral mammogram and left breast ultrasound benign Plan: 1. Incision and drainage in the operating room of the chronic abscess left breast Risk and benefits of the procedure were discussed with the patient. She understands the possible an open incision which will need to be packed. She may have some nipple inversion or decreased sensation in the nipple areolar complex. She wishes to proceed with operative procedure. CC: DR. Vazquez
== END | disposition home or self-care (01) ==
LOC: WWCWWP 16:23
PROVIDERS: ATTEND Surgery
DX: Z53.9 Procedure and treatment not carried out, unspecified reason (principal)

== ENCOUNTER 2020-06-08 07:15 | Day surgery (SDC) | payer OTHER ==
[2020-06-07 09:41] VITALS: BMI 34.0
[~2020-06-08 07:15] MED LIST: DEXAMETHASONE SOD PHOSPHATE 4 MG/ML 1 ML VIAL IV ONE; HEPARIN SODIUM,PORCINE 5,000 UNIT/ML 1 ML VIAL SQ ONE; HYDROmorphone 0.5 MG/0.5 ML SYRINGE IVP PRN; LACTATED RINGERS 1,000 ML IV SCH; LIDOCAINE 1% (10MG/ML) FOR IV START INTRADERMA PRN; MIDAZOLAM 2 MG/2 ML VIAL IV PRN; Pre Op ABX Message 1 EACH MISC MISCELLANE ONE
[2020-06-08] MEDS: ONDANSETRON 4 MG/2 ML VIAL IVP ONE ×2 (07:49→10:03)
[2020-06-08] MEDS ORDERED: PROPOFOL 10 MG/ML 20 ML VIAL IV ONE (08:41)
[2020-06-08] MEDS ORDERED: MIDAZOLAM 2 MG/2 ML VIAL ONE (08:41)
[2020-06-08] MEDS ORDERED: ePHEDrine SULFATE/0.9% NACL/PF 50 MG/5 ML SYRINGE IV ONE (08:41)
[2020-06-08] MEDS ORDERED: fentaNYL (PF) 50 MCG/ML 2 ML AMP ONE (08:41)
[2020-06-08] MEDS ORDERED: PHENYLEPHRINE-0.9% NACL SYG 1 MG/10 ML SYRINGE ONE (08:41)
[2020-06-08] MEDS ORDERED: LIDOCAINE 1% INJ 10MG/ML (20 ML MDV) ONE (08:41)
[2020-06-08] MEDS ORDERED: SCOPOLAMINE 1.5MG/72HR PATCH TRANSDERM ONE (08:44)
--- NOTE | 2020-06-08 09:42 | P.OP ---
Date of Procedure: 06/08/20 Preoperative Diagnosis: Findings chronic abscess behind left nipple areolar complex with open drainage site superior areolar region Postoperative Diagnosis: Same Procedure(s) Performed: (Incision and drainage with debridement deep chronic abscess left breast Anesthesia: HERNANDEZ Surgeon: Shira Womack Estimated Blood Loss (ml): 3 Pathology: other (Wall chronic abscess cavity) Condition: stable Disposition: same day Indications for Procedure: Chronic draining abscess site posterior to the left nipple areolar complex with open sore superior areolar aspect Operative Findings: Granulation tissue Description of Procedure: The patient was taken to the operating room and following induction of anesthesia the left breast was prepped and draped in a sterile fashion. Periareolar incision was made and carried down to the palpable nodularity behind the nipple areolar complex. This appeared to be a chronic abscess site was scar tissue. The tissue of concern was debrided and scar tissue with granulation tissue was noted. Cultures were obtained. The wound was well irrigated. The wound was packed using half inch iodoform. 2 nylon sutures were placed prior to the packing. The patient tolerated the procedure in stable condition.
--- NOTE | 2020-06-08 09:44 | P.DS ---
Providers Attending physician: Shira Womack Primary care physician: Stated None Plan - Discharge Summary Discharge Rx Participant: No New Discharge Prescriptions: No Action No Known Home Medications Discharge Medication List No Known Home Medications 05/14/18 [History] Follow up Appointment(s)/Referral(s): Shira Womack MD [STAFF PHYSICIAN] - 3 Days Activity/Diet/Wound Care/Special Instructions: patient to pack wound BID Do not drive for 24 hours after discharge if taking narcotic pain medication May shower after 48 hours Discharge Disposition: HOME SELF-CARE
[2020-06-08 09:55] VITALS: TEMP 97.9
[2020-06-08] MEDS ORDERED: KETOROLAC 15 MG/ML 1 ML VIAL IVP ONE (09:57)
[2020-06-08] MEDS ORDERED: PROMETHAZINE INJ 3.25 MG in SODIUM CHLORIDE 0.9% 50 ML IVPB STA (10:45)
[2020-06-08 11:47] VITALS: RESP 16
[2020-06-08 12:17] VITALS: BP 97/57; PULSE 88
--- NOTE | 2020-06-10 14:17 | CDI ---
Date: 06.10.2020 CDS/Coating Technician Name: Solange Rivera Phone: If any questions, call Madalyn Swenson [facility] at [phone] Patient Name: Rebeca Linda Admit Date 06.08.20 Discharge Date: 06.08.20 ATTENTION: The [facility] Coding Staff appreciate your assistance in clarifying documentation. Please respond to the clarification below the line at the bottom and electronically sign. The [facility] Coding staff will review the response and follow-up if needed. Please note: Queries are made part of the Legal Health Record. If you have any questions, please contact the [facility]. Dear Dr. Womack In order to code to the greatest specificity and for the greatest reimbursement I need the following information: In your OP note you documented deep abscess, you performed an I&D then debrided the area, please specify the size and depth of the debrided area. Thank you for your kind consideration. The debrided area was approximately 4cm by 2 cm , it was deep to the nipple aerolar complex. MTDD
== END 2020-06-08 12:59 | disposition home or self-care (01) ==
LOC: OR 07:15
PROVIDERS: ATTEND Surgery
DX: N61.1 Abscess of the breast and nipple (principal); B96.89 Other specified bacterial agents as the cause of diseases classified elsewhere; N60.12 Diffuse cystic mastopathy of left breast; N60.11 Diffuse cystic mastopathy of right breast; Z90.49 Acquired absence of other specified parts of digestive tract; Z98.890 Other specified postprocedural states; Z80.8 Family history of malignant neoplasm of other organs or systems
CPT/HCPCS: 11042; 81025; 88304; 87070; 87205; 87075; J2250; J1644; J1100; J2550; J2405; J2001; J3010; J1885; J2370; J2704

== ENCOUNTER → 2020-06-11 | Outpatient (CLI) | payer OTHER ==
[2020-06-11 11:04] VITALS: BP 113/62; PULSE 82; RESP 16; TEMP 98.2
--- NOTE | 2020-06-11 11:16 | P.PN ---
Progress Note - Text Progress Note Date: 06/11/20 Rebeca is a 30 year old white female status post resection of chronic abscess wall behind the left nipple areolar complex an [id number]. She is doing well since the procedure. She is not complaining of any fever or chills. Pathology revealed features consistent with abscess wall and adjacent benign breast tissue with fibrocystic changes. Culture showed no organisms Physical exam: Lungs: Clear Heart: Regular rate and rhythm Left breast incision is clean Impression/plan: packing is changed patient will follow up in 1 week/patient instructed in how to change the packing
== END | disposition home or self-care (01) ==
LOC: WWCWWP 10:21
PROVIDERS: ATTEND Surgery
DX: Z53.9 Procedure and treatment not carried out, unspecified reason (principal)

== ENCOUNTER → 2020-06-17 | Outpatient (CLI) | payer OTHER ==
[2020-06-17 12:48] VITALS: BP 99/60; PULSE 68; RESP 18; TEMP 98.2
--- NOTE | 2020-06-17 13:14 | P.PN ---
Progress Note - Text Progress Note Date: 06/17/20 Rebeca is a 30 year old white female status post resection of chronic abscess wall behind the left nipple areolar complex an [id number]. She is doing well since the procedure. She is not complaining of any fever or chills. Pathology revealed features consistent with abscess wall and adjacent benign breast tissue with fibrocystic changes. Physical exam: Lungs: Clear Heart: Regular rate and rhythm Left breast incision is clean, no evidence of infection Impression/plan: packing is changed patient will follow up in 1 month/patient continue the packing
== END | disposition home or self-care (01) ==
LOC: WWCWWP 12:30
PROVIDERS: ATTEND Surgery
DX: Z53.9 Procedure and treatment not carried out, unspecified reason (principal)

== ENCOUNTER 2020-08-02 08:18 | Emergency (ER) | payer OTHER ==
[2020-08-02 08:26] VITALS: BP 109/68; PULSE 76; RESP 18; TEMP 98.7
[2020-08-02] MEDS ORDERED: DICLOXACILLIN 250 MG CAPSULE PO STA (10:22)
--- NOTE | 2020-08-02 10:22 | USB ---
Reason for exam: clinical finding. History: Benign US biopsy breast VAD LT of the left breast, May 27, 2018. US Breast Limited LT Left limited breast ultrasound including focal area of concern, retroareolar and axilla demonstrates a 3.6 x 1.2 x 2.7cm oval, mixed, vascular collection at 9 o'clock with some associated vascularity. Suspicious for phlegmon and early organizing abscess. ASSESSMENT: Probably benign, BI-RAD 3 RECOMMENDATION: Surgical consultation of the left breast. Manage on a clinical basis with regard to suspected early organizing abscess. Ultrasound of the left breast in 3 months.
--- NOTE | 2020-08-02 10:22 | ED ---
Skin/Abscess/FB HPI - General Chief complaint: Skin/Abscess/Foreign Body Stated complaint: post op infection Time Seen by Provider: 08/02/20 08:36 Source: patient Mode of arrival: ambulatory Limitations: no limitations - History of Present Illness Initial comments: 30yo female presenting for cc of left breast infection. pt states that she recently had a left breast infection that was drained by Dr. Bauer she sates she healed up and everything seemed normal. But Sunday the tenderness returned and redness. pt states that symptoms have been increasing. she waited through the weekend then came to the ER for further evaluation. Denies fever, chills, general malaise. remaining ROS (-). - Related Data Previous Rx's Medication Instructions Recorded Dicloxacillin [Dynapen] 500 mg PO Q6H 7 Days #28 capsule 08/02/20 Allergies Allergy/AdvReac Type Severity Reaction Status Date / Time No Known Allergies Allergy Verified 08/02/20 09:34 Review of Systems ROS Statement: Those systems with pertinent positive or pertinent negative responses have been documented in the HPI. ROS Other: All systems not noted in ROS Statement are negative. Past Medical History Past Medical History: No Reported History Additional Past Medical History / Comment(s): left breast abscess History of Any Multi-Drug Resistant Organisms: None Reported Past Surgical History: Cholecystectomy, Orthopedic Surgery Additional Past Surgical History / Comment(s): LT WRIST BROKEN HAD SX TO REPAIR AND PT STATED "I THINK THEY REMOVED THE PINS THAT WERE IN PLACE" Past Anesthesia/Blood Transfusion Reactions: No Reported Reaction Past Psychological History: No Psychological Hx Reported Smoking Status: Never smoker Past Alcohol Use History: Occasional Past Drug Use History: Marijuana - Past Family History Mother History Unknown: Yes Family Medical History: Unable to Obtain Father Family Medical History: No Reported History Additional Family Medical History / Comment(s): BACK PROBLEMS. Grandparents had skin cancer. General Exam - General Exam Comments Initial Comments: General: The patient is awake and alert, in no distress Eye: +3 mm pupils are equal, round and reactive to light, extra-ocular movements are intact. No nystagmus. There is normal conjunctiva bilaterally. No signs of icterus. Ears, nose, mouth and throat: There are moist mucous membranes and no oral lesions. Neck: The neck is supple, there is no tenderness or JVD. Cardiovascular: There is a regular rate and rhythm. No murmur, rub or gallop is appreciated. Respiratory: Lungs are clear to auscultation, respirations are non-labored, breath sounds are equal. No wheezes, stridor, rales, or rhonchi. Gastrointestinal: Soft, non-distended, non-tender abdomen without masses or organomegaly noted. There is no rebound or guarding present. Musculoskeletal: Normal ROM, no tenderness. Strength 5/5. Sensation intact. Radial pulses equal bilaterally 2+. Neurological: A&O x 3. CN II-XII intact grossly, There are no obvious motor or sensory deficits. Coordination appears grossly intact. Speech is normal. Skin: Skin is warm and dry and no rashes. redness and pain swelling to the left breast 8 oclock position. tender to touch. No appreciated fluctuant area to touch Psychiatric: Cooperative, appropriate mood & affect, normal judgment. Limitations: no limitations Course Vital Signs 08/02/20 08:24 Temperature 98.7 F Pulse Rate 76 Respiratory 18 Rate Blood Pressure 109/68 O2 Sat by Pulse 98 Oximetry Medical Decision Making - Medical Decision Making US small abscess/cellulitis. consulted pt breast surgeon, Dr Juancarlos Redd who told office staff to relay message that she will see patient in office at 12PM tomorrow and to go NPO after midnight in case of an OR drainage. Abx initiated in ER. Patient afebrile does not appears toxic denies constitutional symptoms. Patient discharged appearing well Dr. Douglass agreeable to care plan. Disposition Clinical Impression: Breast abscess, Breast pain, left Disposition: HOME SELF-CARE Condition: Good Instructions (If sedation given, give patient instructions): Abscess (ED) Additional Instructions: Please use medication as discussed. Please follow-up with Dr. Bauer tomorrow at noon for drainage--nothing by mouth after midnight please. Please return to emergency room if the symptoms increase or worsen or for any other concerns. Prescriptions: Dicloxacillin [Dynapen] 500 mg PO Q6H 7 Days #28 capsule Is patient prescribed a controlled substance at d/c from ED?: No Referrals: None,Stated [Primary Care Provider] - 1-2 days Shira Womack MD [STAFF PHYSICIAN] - 08/03/20 12:00 pm Time of Disposition: 10:55
== END 2020-08-02 11:15 | disposition home or self-care (01) ==
LOC: EC 08:18
DX: N61.1 Abscess of the breast and nipple (principal); Z90.49 Acquired absence of other specified parts of digestive tract
CPT/HCPCS: 99283

== ENCOUNTER 2020-08-03 13:00 | Day surgery (SDC) | payer OTHER ==
--- NOTE | 2020-08-03 12:32 | P.PN ---
Subjective Progress Note Date: 08/03/20 Principal diagnosis: abscess left breast Rebeca is a 30-year-old white female who presented to the emergency room yesterday with a complaint of swelling behind the left nipple areolar complex and the breast. She states this started approximately 3 days previous. She does not have any fever or chills. An ultrasound was performed which did show some loculated fluid in this area. Patient had undergone a left breast incision and debridement on which revealed features consistent with abscess wall and adjacent benign breast tissue. This seemed to heal well but then recurred as stated. The patient was started on antibiotics in the emergency room without any evident resolution. Of abscesses seem to have started following nipple piercing several years ago. She had a bilateral mammogram on this was felt to be incomplete and ultrasound of the left breast was recommended ultrasound was negative by rates 1 and routine screening of both breasts 1 year was recommended. She is not complaining of any sores anyplace else in her body. She has not had any recent trauma to the breast. Patient complains the area of redness has increased, and it is tender. hormones: none Family History: 1. paternal grandfather and grandmother: skin cancer uncertain of the type Hormonal History: menarche: 8 : 2, 2 children, breast fed: no, age at first : 18 periods regular: LMP March 06, 2020 BCP: no hormones: none Past Surgical Hsitory: 1. wrist 2. gallbladder 3. I&D of left breast Past Medical History: none Social History: smoke: none alcohol: none drugs: none; marijuana occasionally - Constitutional Constitutional: Denies chills, Denies fever - EENT Eyes: denies blurred vision, denies pain Ears: deny: decreased hearing, tinnitus Ears, nose, mouth and throat: Reports headache - Breasts Breasts: bilateral: as per HPI - Cardiovascular Cardiovascular: Denies chest pain, Denies shortness of breath - Respiratory Respiratory: Denies cough - Gastrointestinal Gastrointestinal: Denies abdominal pain, Denies diarrhea, Denies nausea, Denies vomiting - Genitourinary (Female) Genitourinary: Denies dysuria, Denies hematuria - Menstruation Menstruation: Reports period normal - Musculoskeletal Comment: arthritis in left knee Musculoskeletal: Denies myalgias - Integumentary Integumentary: Denies pruritus, Denies rash - Neurological Neurological: Denies numbness, Denies weakness - Psychiatric Psychiatric: Denies anxiety, Denies depression - Endocrine Endocrine: Denies fatigue, Denies weight change - Hematologic/Lymphatic Comment: none Objective - Vital Signs Vital signs: Vital Signs Temp 98.5 F 08/03/20 12:00 Pulse 53 L 08/03/20 12:00 Resp 16 08/03/20 12:00 BP 122/75 08/03/20 12:00 Pulse Ox 96 08/03/20 12:00 Intake & Output 08/02/20 08/03/20 08/03/20 18:59 06:59 18:59 Weight 104.326 kg - Constitutional General appearance: Present: average body habitus - EENT Eyes: Present: EOMI ENT: Present: hearing grossly normal - Neck Neck: Present: normal ROM - Respiratory Respiratory: bilateral: CTA - Cardiovascular Rhythm: regular Heart sounds: normal: S1, S2 - Gastrointestinal General gastrointestinal: Present: soft - Integumentary Integumentary: Present: cellulitis - Musculoskeletal Musculoskeletal: Present: gait normal - Psychiatric Psychiatric: Present: A&O x's 3, appropriate affect, intact judgment & insight - Additional findings Additional findings: Breast exam: sports bras large Inspection: Right breast: Grade 3 ptosis inspection: left breast, Grade 3 ptosis, cellulitis 7 x 7 cm in the medial aspect of the breast encompassing approximately 30 of the areolar area Palpation: right breast: Multiple positional exam fibrocystic changes, no dominant masses or nodules of concern right axilla: No adenopathy of concern Left breast: Multiple positional exam fibrocystic changes, tenderness over area of fluctuance and cellulitis in the periareolar region, proximally 7 x 7 cm in size Left axilla: No adenopathy of concern Assessment and Plan Assessment: Impression: Chronic abscess left breast most recently drained June [id number] now recurrent approximately 3 days ago Loculated abscess suspect that radiographic drainage will be insufficient patient on oral dicloxacillin Plan: 1. I&D in the operating room of left breast abscess 2. IV antibiotics The skin benefits of the procedure were discussed with the patient. The risk of recurrence was discussed. Patient understands this will be an open wound that will require packing. The option of percutaneous drainage was discussed however secondary to the fact this is loculated. This would most likely be insufficient. Therefore the patient has decided for open surgical drainage. CC: Dr. Vazquez
[2020-08-03] MEDS ORDERED: LACTATED RINGERS 1,000 ML IV ONE (13:25)
[2020-08-03] MEDS ORDERED: ONDANSETRON 4 MG/2 ML VIAL ONE (13:27)
[2020-08-03] MEDS ORDERED: ONDANSETRON 4 MG/2 ML VIAL IVP ONE (13:31)
[2020-08-03] MEDS ORDERED: DEXAMETHASONE SOD PHOSPHATE 4 MG/ML 1 ML VIAL IV ONE (13:32)
[2020-08-03] MEDS ORDERED: SCOPOLAMINE 1.5MG/72HR PATCH TRANSDERM ONE (13:32)
[2020-08-03] MEDS ORDERED: MIDAZOLAM 2 MG/2 ML VIAL ONE (14:40)
[2020-08-03] MEDS ORDERED: fentaNYL (PF) 50 MCG/ML 2 ML AMP ONE (14:40)
[2020-08-03] MEDS ORDERED: PROPOFOL 10 MG/ML 20 ML VIAL IV ONE (14:40)
[2020-08-03] MEDS ORDERED: KETAMINE 10 MG/ML 20 ML VIAL ONE (14:40)
--- NOTE | 2020-08-03 15:12 | P.OP ---
Date of Procedure: 08/03/20 Preoperative Diagnosis: Left breast abscess/loculated Postoperative Diagnosis: Same Procedure(s) Performed: Incision and drainage of left breast abscess Anesthesia: MAC Surgeon: Shira Womack Estimated Blood Loss (ml): 1 IV fluids (ml): 300 Pathology: other (cultures, abscess drained) Condition: stable Disposition: same day Operative Findings: Abscess left breast Description of Procedure: The patient was taken to the operating room and following sedation the left breast was prepped and draped in a sterile fashion. Area of greatest fluctuance was palpated in the medial was inserted into this site. Purulent drainage was identified. An incision was made over the site which was approximately 2 cm in length. This was carried to the skin and subcutaneous tissue and abscess cavity. Blunt dissection proton any septations in the cavity. Purulent drainage was expressed. The wound was well irrigated using normal saline 1 L. Following this was packed using iodoform gauze. The patient tolerated procedure in stable condition. All instrument and sponge counts were correct at the end of the case.
--- NOTE | 2020-08-03 15:14 | P.DS ---
Providers Attending physician: Shira Womack Primary care physician: Stated None Plan - Discharge Summary New Discharge Prescriptions: No Action Dicloxacillin [Dynapen] 500 mg PO Q6H 7 Days #28 capsule Discharge Medication List Dicloxacillin [Dynapen] 500 mg PO Q6H 7 Days #28 capsule 08/02/20 [Rx] Follow up Appointment(s)/Referral(s): Shira Womack MD [STAFF PHYSICIAN] - 1-2 Days Patient Instructions/Handouts: *Surgery [facility] - Scopalamine Patch Instructions Activity/Diet/Wound Care/Special Instructions: teach patient wound care, change packing q day do not drive until seen by DR. Bauer may shower tomorrow Discharge Disposition: HOME SELF-CARE
[2020-08-03 15:26] VITALS: TEMP 97.6
[2020-08-03 15:54] VITALS: BP 126/77; PULSE 61; RESP 20
[2020-08-03] MEDS ORDERED: HYDROcodone/APAP 5-325MG 1 EACH TAB ONE (16:14)
[2020-08-03] MEDS ORDERED: HYDROcodone/APAP 5-325MG 1 EACH TAB PO ONE (16:20)
== END 2020-08-03 16:50 | disposition home or self-care (01) ==
LOC: OR 13:00
PROVIDERS: ATTEND Surgery
DX: N61.1 Abscess of the breast and nipple (principal); Z80.8 Family history of malignant neoplasm of other organs or systems; Z98.890 Other specified postprocedural states; Z90.49 Acquired absence of other specified parts of digestive tract
CPT/HCPCS: 81025; 87070; 87205; 87075; 19020; J2250; J1100; J0690; J2405; J3010; J2704

== ENCOUNTER → 2020-08-06 | Outpatient (CLI) | payer OTHER ==
[2020-08-06 11:06] VITALS: BP 101/60; PULSE 67; RESP 16; TEMP 98
--- NOTE | 2020-08-06 11:37 | P.PN ---
Progress Note - Text Progress Note Date: 08/06/20 Rebeca is a 30-year-old white female status post I&D of the periareolar abscess on 1520. The area of erythema has resolved at this time. Cultures were negative. She is presently on Bactrim. Packing is changed. Patient is doing well and will follow-up in 2 weeks. Plan: 1. Continue present care. We will obtain home health care this patient does not feel comfortable changing the packing. 2. Follow-up in 2 weeks or sooner if any questions or problems
== END | disposition home or self-care (01) ==
LOC: WWCWWP 10:32
PROVIDERS: ATTEND Surgery
DX: Z53.9 Procedure and treatment not carried out, unspecified reason (principal)

== ENCOUNTER → 2020-08-20 | Outpatient (CLI) | payer OTHER ==
[2020-08-20 16:16] VITALS: BP 100/70; PULSE 70; RESP 16; TEMP 98.2
--- NOTE | 2020-08-20 16:49 | P.PN ---
Progress Note - Text Progress Note Date: 08/20/20 Rebeca is a 30-year-old white female status post I&D of the periareolar abscess on 1520. The area of erythema has resolved at this time. Cultures were negative. She completed a course of Bactrim. Packing is changed. Patient is doing well and will follow-up in 4weeks. Plan: 1. Continue present care. 2. Follow-up in 4 weeks or sooner if any questions or problems
== END | disposition home or self-care (01) ==
LOC: WWCWWP 16:09
PROVIDERS: ATTEND Surgery
DX: Z53.9 Procedure and treatment not carried out, unspecified reason (principal)

== ENCOUNTER → 2020-09-24 | Outpatient (CLI) | payer OTHER ==
[2020-09-24 12:08] VITALS: BP 105/68; PULSE 75; RESP 18; TEMP 98.3
--- NOTE | 2020-09-24 12:27 | P.PN ---
Subjective Progress Note Date: 09/24/20 Principal diagnosis: left breast abscess The patient is a 30-year-old white female who presented in fall of 2017 with a complaint of an area of nodularity in the left breast. Area was in the lower inner aspect of the breast. She had a bilateral mammogram performed [id number] which revealed a mass near the skin in the lower inner quadrant of the left breast. She subsequently had an ultrasound performed the same day which revealed a 1 x 0.7 cm possible cystic lesion at 9:00 and biopsy was recommended. Ultrasound core biopsy of the left breast was done. Core biopsy was done on [id number]. This revealed benign breast parenchyma with abscess wall informed body giant cells consistent with reaction to a ruptured cyst or ruptured duct. Focal apocrine ductal metaplasia was noted negative for malignancy. The patient has had bilateral nipple piercings done approximately 4 years ago. The patient began having purulent drainage from the nipple piercing site in the left breast. She states she had also got some purulent drainage from the core biopsy site. She has not worn the piercings since 2017. She has no problems with the left breast. She did not have any fever or chills. She does complain of some nodularity under the nipple on the left. She states that it is tender at times. She states it gets worse right before her period. She had a bilateral mammogram performed on and an ultrasound of the left breast. These findings were felt to be negative BIRADS 1 and routine screening of both breasts in 1 year was recommended. She had cultures performed which revealed anaerobic gram-positive cocci and properitoneal bacterium acnes. She had no fever or chills. It is felt she has a chronic draining abscess cavity behind the nipple and this should be open for complete drainage. We discussed antibiotic treatment was felt that the cavity needed to be opened. She underwent incision and debridement of this area on 1109. Postprocedure she did well until approximately July 2020. At that time she was noted to have some swelling and seemed to be reinfected and she was seen in the emergency room. She was then referred here and underwent incision and drainage in the operating room on 1520. At this time the area has closed and she is doing well. The patient had undergone an ultrasound of the left breast on 1420 which revealed a 3.6 x 2.7 cm lesion suspicious for phlegmon and/or organizing abscess. She did have a bilateral mammogram on an ultrasound of the left breast was then performed that was felt to be negative at the time and repeat bilateral mammogram in 1 year was recommended. The patient drinks 1-2 cups of coffee/day. She does not smoke not exposed to secondhand smoke. She eats chocolate rarely. hormones: none Family History: 1. paternal grandfather and grandmother: skin cancer uncertain of the type Hormonal History: menarche: 8 : 2, 2 children, breast fed: no, age at first : 18 periods regular: LMP March 06, 2020 BCP: no hormones: none Past Surgical Hsitory: 1. wrist 2. gallbladder 3. I&D left breast abscess Past Medical History: none Social History: smoke: none alcohol: none drugs: none; marijuana occasionally - Constitutional Constitutional: Denies chills, Denies fever - EENT Eyes: denies blurred vision, denies pain Ears: deny: decreased hearing, tinnitus Ears, nose, mouth and throat: Reports headache - Breasts Breasts: bilateral: as per HPI - Cardiovascular Cardiovascular: Denies chest pain, Denies shortness of breath - Respiratory Respiratory: Denies cough - Gastrointestinal Gastrointestinal: Denies abdominal pain, Denies diarrhea, Denies nausea, Denies vomiting - Genitourinary (Female) Genitourinary: Denies dysuria, Denies hematuria - Menstruation Menstruation: Reports period normal - Musculoskeletal Comment: arthritis in left knee Musculoskeletal: Denies myalgias - Integumentary Integumentary: Denies pruritus, Denies rash - Neurological Neurological: Denies numbness, Denies weakness - Psychiatric Psychiatric: Denies anxiety, Denies depression - Endocrine Endocrine: Denies fatigue, Denies weight change - Hematologic/Lymphatic Comment: none Objective - Vital Signs Vital signs: Vital Signs Temp 98.3 F 09/24/20 12:05 Pulse 75 09/24/20 12:05 Resp 18 09/24/20 12:05 BP 105/68 09/24/20 12:05 Pulse Ox 98 09/24/20 12:05 Intake & Output 09/23/20 09/24/20 09/24/20 18:59 06:59 18:59 Weight 99.79 kg - Exam BMI 33.5 - Constitutional General appearance: Present: average body habitus - EENT Eyes: Present: EOMI ENT: Present: hearing grossly normal - Neck Neck: Present: normal ROM - Respiratory Respiratory: bilateral: CTA - Cardiovascular Rhythm: regular Heart sounds: normal: S1, S2 - Gastrointestinal General gastrointestinal: Present: soft - Integumentary Integumentary: Present: normal turgor - Musculoskeletal Musculoskeletal: Present: gait normal - Psychiatric Psychiatric: Present: A&O x's 3, appropriate affect, intact judgment & insight - Additional findings Additional findings: breast exam: BRA; 38C inspection: Grade 2/3 ptosis bilaterally Palpation: Right breast: Multi-positional exam fibrocystic changes, no dominant masses or nodules of concern Right axilla: No adenopathy of concern Left breast: Well-healed scar from prior incision and drainage of abscess with some firmness under the scar, otherwise no dominant masses or nodules of concern, fibrocystic changes Left axilla: No adenopathy of concern Assessment and Plan Assessment: Impression: 1. Fibrocystic breast changes 2. Chronic left breast abscess resolved at this time Plan: 1. Bilateral mammogram in March with physician exam at that time Encounter 15 minutes, time spent in reviewing medical records, counseling, and physical examination.
== END | disposition home or self-care (01) ==
LOC: WWCWWP 12:01
PROVIDERS: ATTEND Surgery
DX: N60.11 Diffuse cystic mastopathy of right breast (principal); N60.12 Diffuse cystic mastopathy of left breast